=== PATIENT | male | born 1940 | race Asian ===

== ENCOUNTER 2021-12-07 20:00 | Inpatient (IN) | payer OTHER, MEDICAID ==
[~2021-12-07] VITALS: Ht 165.1 cm; Wt 71.7 kg
--- NOTE | 2021-12-07 21:17 | NUR ---
Pt arrived from home for c/o SOB with onset of x1 hour prior to ED arrival. Denies any chest discomfort/pain, N&V. Pt arrived to ED in no acute distress. Breathing adequately on RA. Afebrile. Reports PMH of Prostate CA, Heart surgery October 2021, and Aflutter. Pt connected to registered nurse cardiac telemetry. O2 sat 97% on RA. Daughter at bedside.
[2021-12-07] MEDS ORDERED: ASPIRIN 81 MG TAB.CHEW PO ONE (22:00)
--- NOTE | 2021-12-07 22:38 | NUR ---
Swabbed for COVID & MRSA. Sent to lab.
--- NOTE | 2021-12-07 22:55 | NUR ---
Meal provided by daughter; okay with outside meal.
--- NOTE | 2021-12-07 23:00 | NUR ---
# 22 gauge angiocath placed to R FOREARM. Use of asceptic technique. Opsite placed over site. Blood return noted. Flushed with 10 cc of normal saline. No evidence of infiltration noted. Patient tolerated well.
[2021-12-08 00:23] LABS: BASOPHILS % (AUTO) 1.1 % (0.0-2.0); EOSINOPHILS # (AUTO) 0.6 K/uL (0.0-0.4); EOSINOPHILS % (AUTO) 12.5 % (0.0-4.0); HEMATOCRIT 34.9 % (36-54); HEMOGLOBIN 11.5 g/dL (14.0-18.0); LYMPHOCYTES % (AUTO) 21.4 % (20.5-51.5); MEAN CORPUSCULAR HEMOGLOBIN 30 pg (27-31); MEAN CORPUSCULAR HGB CONC 33 % (32-36); MEAN CORPUSCULAR VOLUME 90 fL (79.0-98.0); MONOCYTES # (AUTO) 0.5 K/uL (0.0-1.0); NEUTROPHILS # (AUTO) 2.6 K/uL (1.8-7.7); PLATELET COUNT (AUTO) 179 K/uL (130-430); RED BLOOD CELL COUNT(AUTO) 3.89 MIL/uL (4.2-6.2); RED CELL DISTRIBUTION WIDTH 15.4 % (9.0-15.0); WHITE BLOOD COUNT (AUTO) 4.8 K/uL (4.8-10.8)
[2021-12-08 00:34] LABS: ANION GAP 5 (5-15); CALCIUM 8.7 mg/dL (8.4-11.0); CHLORIDE 102 mmol/L (98-107); CREATININE 1.27 mg/dL (0.55-1.30); GLUCOSE 127 mg/dL (70-99); POTASSIUM 4.3 mmol/L (3.5-5.1); SODIUM SERUM 137 mmol/L (136-145); UREA NITROGEN, BLOOD 20 mg/dL (8-21)
[2021-12-08 00:42] LABS: ALANINE AMINOTRANSFERASE 32 U/L (12-78); ALBUMIN 3.1 g/dL (3.4-4.8); ASPARTATE AMINOTRANSFERASE 23 U/L (10-37); TOTAL BILIRUBIN 0.3 mg/dL (0.0-1.0)
[2021-12-08] MEDS ORDERED: LevALBUTEROL HCL 1.25 MG/0.5 ML *CONC.* VIAL.NEB (XOPENEX CONC.) INH PRN (01:00)
--- NOTE | 2021-12-08 01:56 | NUR ---
Admit bed requested Patient will be admitted to care of . Admitted to TELE unit. Diagnosis: SOB, AFIB Inpatient: (Yes or No) Y Observation: (Yes or No) Y Orientation concerns or request close to nursing station (Yes or No) N Covid Status: PENDING From Home (Yes or if No enter name of facility) YES
[2021-12-08 03:12] VITALS: BP_SYST 112
[2021-12-08 04:52] VITALS: BP_SYST 114
--- NOTE | 2021-12-08 04:57 | NUR ---
Patient will be admitted to care of MD [facility]. Admitted to TELE unit. Will go to room 116B. Complete and up to date summary report printed. SBAR report given at bedside to MADELINE Jimenez with opportunity for questions.
--- NOTE | 2021-12-08 05:24 | NUR ---
CONSULT: CONSULT CALLED FOR DR. MURRAY I SPOKE WITH SUSSY MCNAMARA REASON FOR CONSULT: A FIB REQUESTING CONSULT: DR. XIE CURRICULUM ASSISTANT PRINCIPAL PHONE NUMBER: [phone]
--- NOTE | 2021-12-08 05:30 | NUR ---
PT ADMITTED TO TELE. PT AOX4 ABLE TO MAKE NEEDS KNOWN. RR EVEN AND UNLABORED ON RA. PT DENIES CHEST PAIN AT THIS TIME. PT READING A FLUTTER ON MONITOR. DAUGHTER AT BEDSIDE. PT EDUCATED TO USE CALL LIGHT IF HE NEEDS ASSISTANCE. ALL NEEDS MEET AT THIS TIME. BED RAILS UPX2. PT ABLE TO AMBULATE. WILL CONTINUE TO MONITOR.
[2021-12-08] MEDS ORDERED: METOPROLOL TARTRATE 25 MG TABLET PO SCH (09:00)
[2021-12-08] MEDS ORDERED: APIXABAN 2.5 MG TABLET PO SCH (09:00)
[2021-12-08] MEDS: ASPIRIN 81 MG TAB.CHEW PO SCH (11:09)
[2021-12-08] MEDS: FUROSEMIDE 20 MG/2 ML VIAL IVP SCH ×2 (11:12→21:22)
--- NOTE | 2021-12-08 11:19 | NUR ---
FAMILY PRESENT AT BEDSIDE AND NO C/O PAIN AND NO C/O RESP DISTRESS, NO GI/ ISSUES ADN PT IS URINATIG WELL, FAMILY WANTS TO GO HOME THIS EVENING IF EVERYTHING GOES WELL WITH PT . THEY RATHER BE REATED FROM HOME. PT TRANSFERS SELF TO CHAIR, THEY WANT TO SEE IF DOCTOR CAN D/C HOME THIS EVENING AFTER EVENING PO MEDS. , THEY STATE THAT PTFEELS WELL AND TREATMENT CAN CONTINUE AT HOME . CARE RESUMED
[2021-12-08 12:55] VITALS: BP_SYST 110
[2021-12-08 16:08] VITALS: BP_SYST 105
[2021-12-08 20:43] VITALS: BP_SYST 106
[2021-12-08] MEDS: APIXABAN 2.5 MG TABLET PO SCH (21:23)
--- NOTE | 2021-12-08 21:57 | NUR ---
DAUGHTER SAYS SHE WILL HAVE PATIENT MOVE TO [place] UPON DISCHARGE FROM HOSPITAL. PATIENT AND DAUGHTER AGREE PATIENT IS FEELING BETTER SINCE ADMISSION. ROSALBA BATES RN
--- NOTE | 2021-12-08 22:19 | NUR ---
DAUGHTER SAYS SHE WILL ADD LIPITOR TO MEDICATION RECONCILIATION 10MG. DOCTOR ANNE-MARIE NOTIFIED AND AGREES WITH ORDER FOR MEDICATION LIPITOR. ROSALBA BATES RN
[2021-12-08] MEDS ORDERED: ATORVASTATIN 10 MG TABLET PO ONE (22:30)
[2021-12-09 00:25] VITALS: BP_SYST 123
[2021-12-09 08:00] VITALS: BP_SYST 123
[2021-12-09 08:00] LABS: EOSINOPHILS # (AUTO) 0.7 K/uL (0.0-0.4); EOSINOPHILS % (AUTO) 12.6 % (0.0-4.0); HEMATOCRIT 34.3 % (36-54); HEMOGLOBIN 11.3 g/dL (14.0-18.0); LYMPHOCYTES # (AUTO) 1.4 K/uL (1.0-5.5); LYMPHOCYTES % (AUTO) 26.2 % (20.5-51.5); MEAN CORPUSCULAR HEMOGLOBIN 30 pg (27-31); MEAN CORPUSCULAR HGB CONC 33 % (32-36); MEAN CORPUSCULAR VOLUME 90 fL (79.0-98.0); MONOCYTES # (AUTO) 0.6 K/uL (0.0-1.0); MONOCYTES % (AUTO) 11.5 % (1.7-9.3); PLATELET COUNT (AUTO) 175 K/uL (130-430); RED BLOOD CELL COUNT(AUTO) 3.83 MIL/uL (4.2-6.2); RED CELL DISTRIBUTION WIDTH 15.4 % (9.0-15.0); WHITE BLOOD COUNT (AUTO) 5.2 K/uL (4.8-10.8)
[2021-12-09 08:36] LABS: ALANINE AMINOTRANSFERASE 22 U/L (12-78); ALBUMIN 2.9 g/dL (3.4-4.8); ANION GAP 5 (5-15); ASPARTATE AMINOTRANSFERASE 21 U/L (10-37); CALCIUM 8.5 mg/dL (8.4-11.0); CHLORIDE 106 mmol/L (98-107); CREATININE 1.09 mg/dL (0.55-1.30); GLUCOSE 83 mg/dL (70-99); POTASSIUM 4.6 mmol/L (3.5-5.1); SODIUM SERUM 141 mmol/L (136-145); TOTAL BILIRUBIN 0.8 mg/dL (0.0-1.0); UREA NITROGEN, BLOOD 22 mg/dL (8-21)
[2021-12-09] MEDS ORDERED: ATORVASTATIN 10 MG TABLET PO SCH (09:00)
[2021-12-09] MEDS ORDERED: METOPROLOL SUCCINATE 25 MG TAB.SR.24H (TOPROL XL) PO SCH (09:00)
[2021-12-09 09:28] LABS: BASOPHILS % (AUTO) 0.5 % (0.0-2.0); NEUTROPHILS % (AUTO) 49.2 % (40.0-70.0)
[2021-12-09 09:29] LABS: NEUTROPHILS # (AUTO) 2.6 K/uL (1.8-7.7)
[2021-12-09] MEDS: FUROSEMIDE 20 MG/2 ML VIAL IVP SCH (09:39)
[2021-12-09] MEDS: ASPIRIN 81 MG TAB.CHEW PO SCH (09:40)
[2021-12-09] MEDS: APIXABAN 2.5 MG TABLET PO SCH (09:46)
[2021-12-09 12:00] VITALS: BP_SYST 117
--- NOTE | 2021-12-09 16:30 | NUR ---
pt stable and no c/o pain and no s/s of distress, pt eating well and pt had bm. iv patent and no gi / gu issues noted. care resumed. came to assess pt and no further orders noted . ready for discharge and daughter her to take pt home. rx given to daughter. i will walk pt out to vehicle upon d/c to private vehicle
[2021-12-09 16:33] VITALS: BP_SYST 117
[2021-12-09] MEDS ORDERED: ASPI-1393 PO (16:47)
[2021-12-09] MEDS ORDERED: PRED20TA PO (16:48)
== END 2021-12-09 17:05 | disposition home health service (06) | DRG 308 ==
LOC: SED 20:00 → STU 12-08 01:00
PROVIDERS: ADMIT Family Medicine; ATTEND Family Medicine
DX: I48.0 Paroxysmal atrial fibrillation (principal); I50.23 Acute on chronic systolic (congestive) heart failure; I31.3 Pericardial effusion (noninflammatory); I11.0 Hypertensive heart disease with heart failure; I48.92 Unspecified atrial flutter; D64.9 Anemia, unspecified; I42.9 Cardiomyopathy, unspecified; Z20.822 Contact with and (suspected) exposure to COVID-19; I34.0 Nonrheumatic mitral (valve) insufficiency; Z95.2 Presence of prosthetic heart valve
CPT/HCPCS: 36415; 71045; 80053; 83880; 84484; 85025; 87081; 93005; 93306; 99285; G0378; J1940